=== PATIENT | male | born 1940 | race African-American/Black ===

== ENCOUNTER 2017-07-21 18:17 | Emergency (ER) | payer OTHER ==
[~2017-07-21] VITALS: Ht 172.7 cm; Wt 78.5 kg
[~2017-07-21 18:17] MED LIST: ALLOPURINOL 10100 M2 PO; AMLODIPINE BESYL5 M1 PO; ASPIRIN325 PO; ATORVASTATIN CA20 MG PO; FOLIC ACID XTR0.8 MG PO; GLUMETZA500 PO; KLOR-CON 1010 MEQ PO; LISINOPRIL20 MG PO; MAGOX 400400 MG PO; METOPROLOL TART25 MG PO; PREDNISONE 5 MG5 MG PO; VITAMIN D32000 UNI1 PO
[2017-07-21 18:22] VITALS: BP 159/76
[2017-07-21] MEDS ORDERED: NORVASC2.5 MG PO (18:35)
[2017-07-21] MEDS ORDERED: NORFLEX100 MG PO (19:10)
[2017-07-21] MEDS ORDERED: HYDROCODONE-AP1 EAC6 PO (19:10)
[2017-07-21] MEDS ORDERED: MEDROLDOSEPACK PO (19:10)
== END 2017-07-21 19:22 | disposition home or self-care (01) ==
LOC: ER 18:17
DX: M54.12 Radiculopathy, cervical region (principal); M25.511 Pain in right shoulder; I10 Essential (primary) hypertension; E11.9 Type 2 diabetes mellitus without complications

== ENCOUNTER → 2019-10-31 | Outpatient (CLI) | payer OTHER ==
[~2019-10-31] MED LIST changes: +HYDROCODONE-AP1 EAC6 PO; +MEDROLDOSEPACK PO; +NORFLEX100 MG PO; +NORVASC2.5 MG PO
== END ==
LOC: SJCVCIMAG 10-21 10:06
PROVIDERS: ATTEND Internal Medicine Cardiovascular Disease
DX: I08.0 Rheumatic disorders of both mitral and aortic valves (principal); I44.7 Left bundle-branch block, unspecified; I25.10 Atherosclerotic heart disease of native coronary artery without angina pectoris; I10 Essential (primary) hypertension; E11.9 Type 2 diabetes mellitus without complications; E78.5 Hyperlipidemia, unspecified

== ENCOUNTER → 2020-08-24 | Outpatient (CLI) | payer OTHER | LOC: SJCVC 09:51 → SJCVCIMAG 09:51 | PROVIDERS: ATTEND Internal Medicine Cardiovascular Disease | DX: R94.31 Abnormal electrocardiogram [ECG] [EKG] (principal); I51.7 Cardiomegaly; I47.1 Supraventricular tachycardia; I25.10 Atherosclerotic heart disease of native coronary artery without angina pectoris; R09.89 Other specified symptoms and signs involving the circulatory and respiratory systems; I44.7 Left bundle-branch block, unspecified; I65.23 Occlusion and stenosis of bilateral carotid arteries; E11.9 Type 2 diabetes mellitus without complications; I10 Essential (primary) hypertension; I25.2 Old myocardial infarction; E78.00 Pure hypercholesterolemia, unspecified; Z72.89 Other problems related to lifestyle; Z79.82 Long term (current) use of aspirin; Z79.899 Other long term (current) drug therapy; Z79.84 Long term (current) use of oral hypoglycemic drugs ==